=== PATIENT | male | born 1985 | race Two or more races ===

== ENCOUNTER 2018-12-25 18:11 | Emergency (ER) | payer OTHER ==
[~2018-12-25] VITALS: Ht 172.7 cm; Wt 77.0 kg
--- NOTE | 2018-12-25 18:45 | NUR ---
Patient presents to ED with severe depression after a breakup with his girlfriend of 10 years. He also states he lost custody of the children and kept repeating "I just want my kids back" throughout assessment. Patient states he just wants it "all to end" and when assessed for SI or HI he shrugs his shoulders and states "maybe". Patient found wandering hospital halls, disoriented and confused prior to triage. Patient oriented x4 but slow to respond, tearful throughout assessment. Sitter at bedside for safety, all other safety measures in place.
[2018-12-25 19:29] LABS: CLARITY,URINE CLEAR (Clear); COLOR,URINE YELLOW (Yellow); GLUCOSE, URINE NEGATIVE (Neg); KETONES,URINE 40 mg/dl (Neg); LEUKOCYTE ESTERASE ,URINE NEGATIVE (Neg); NITRITES, URINE NEGATIVE (Neg); OCCULT BLOOD,URINE NEGATIVE (Neg); PH,URINE 5.5 (4.8-8.0); PROTEIN,URINE NEGATIVE (Neg); UROBILINOGEN,URINE 0.2 E.U/dL (0.2-1.0)
[2018-12-25 19:33] LABS: URINE AMPHETAMINE SCREEN NEGATIVE (Neg); URINE BARBITUATE SCREEN NEGATIVE (Neg); URINE BENZODIAZEPINES SCREEN NEGATIVE (Neg); URINE CANNABINOID SCREEN NEGATIVE (Neg); URINE COCAINE SCREEN NEGATIVE (Neg); URINE METHADONE SCREEN NEGATIVE (Neg); URINE OPIATE SCREEN NEGATIVE (Neg); URINE PHENCYCLIDINE SCREEN NEGATIVE (Neg)
[2018-12-25 19:43] LABS: UA COLLECTION TYPE CLN CATCH MIDSTREAM
[2018-12-25 20:02] LABS: BASOPHILS # (AUTO) 0.1 X10'3 (0-0.2); EOSINOPHILS # (AUTO) 0.4 X10'3 (0-0.9); EOSINOPHILS % (AUTO) 5.8 % (0-6); HEMATOCRIT 43.9 % (42.0-52.0); HEMOGLOBIN 15.6 g/dl (14.0-17.9); LYMPHOCYTES # (AUTO) 1.4 X10'3 (1.1-4.8); LYMPHOCYTES % (AUTO) 20.1 % (21-51); MEAN CORPUSCULAR HEMOGLOBIN 31.4 PG (27.0-31.0); MEAN CORPUSCULAR HGB CONC 35.5 g/dL (33.0-36.5); MEAN CORPUSCULAR VOLUME 88.5 FL (78-98); MONOCYTES # (AUTO) 0.6 X10'3 (0-0.9); MONOCYTES % (AUTO) 8.8 % (2-12); NEUTROPHILS # (AUTO) 4.4 X10'3 (1.8-7.7); NEUTROPHILS % (AUTO) 63.3 % (42-75); PLATELET COUNT 282 X10'3 (140-440); RED BLOOD COUNT 4.96 X10'6 (4.70-6.10); RED CELL DISTRIBUTION WIDTH 12.6 % (11.5-14.5)
[2018-12-25 20:16] LABS: ALANINE AMINOTRANSFERASE 36 U/L (12-78); ALBUMIN 3.8 G/DL (3.4-5.0); ALKALINE PHOSPHATASE 93 IU/L (46-116); ANION GAP 9 (8-16); ASPARTATE AMINO TRANSFERASE 26 U/L (10-37); BILIRUBIN,TOTAL 0.4 MG/DL (0.1-1.0); BLOOD UREA NITROGEN 19 MG/DL (7-18); BUN/CREATININE RATIO 16.1 (5.4-32.0); CALCIUM 8.6 MG/DL (8.5-10.1); CHLORIDE 105 MMOL/L (99-107); CREATININE 1.18 MG/DL (0.60-1.10); GLUCOSE 110 MG/DL (70-104); POTASSIUM 3.9 MMOL/L (3.5-5.1); SODIUM 139 MMOL/L (135-145); TOTAL CARBON DIOXIDE 24.9 MMOL/L (24-32); TOTAL PROTEIN 7.5 G/DL (6.4-8.2); eGFR 70 ML/MIN
[2018-12-25 20:25] LABS: ETHANOL < 0.010 GM/DL (0.0-0.010)
--- NOTE | 2018-12-25 23:27 | NUR ---
Pt arrived to overflow, changed into green scrubs. Pt given water, offered food, but he refused. Pt states he "just wants to go." [employer] [facility] explained to pt why he is here, and encouraged pt to try to get some rest. Pt verbalized understanding and laid in bed.
--- NOTE | 2018-12-26 01:33 | NUR ---
Pt is asleep on L side. Respirations WNL. No signs or symptoms of distress.
--- NOTE | 2018-12-26 04:00 | NUR ---
Telesych ordered, and completed.
[2018-12-26 04:09] VITALS: BP 123/72
== END 2018-12-26 04:33 | disposition home or self-care (01) ==
LOC: EDBD 18:12 → ER 18:12
DX: F32.9 Major depressive disorder, single episode, unspecified (principal)
CPT/HCPCS: 36415; 80053; 80305; 80320; 81003; 84443; 85025; 99284